=== PATIENT | female | born 1975 | race Caucasian/White ===

== ENCOUNTER → 2019-02-06 | Outpatient (CLI) | payer OTHER | LOC: BRMIMAGING 09:47 | PROVIDERS: ATTEND Family Medicine | DX: N60.11 Diffuse cystic mastopathy of right breast (principal); N60.12 Diffuse cystic mastopathy of left breast; R92.2 Inconclusive mammogram; G61.81 Chronic inflammatory demyelinating polyneuritis | CPT/HCPCS: 76641-PO ==